=== PATIENT | male | born 1955 | race Caucasian/White ===

== ENCOUNTER 2020-03-19 01:23 | Emergency (ER) | payer OTHER ==
[~2020-03-19] VITALS: Ht 182.9 cm; Wt 74.8 kg
[2020-03-19 01:28] VITALS: BP 132/70
[2020-03-19] MEDS ORDERED: LIDOCAINE 1%-EPI 1:100,000 20 ML VIAL ONE (01:42)
--- NOTE | 2020-03-19 02:24 | NUR ---
pt rec'd lac care by at bed side. wound care provideed by JACKIE Franco . area was covered w/ dd. no bleeding noted. medically stable for D/C. Patient discharged to home in stable condition. Rx and Written and verbal after care instructions given. Patient verbalizes understanding of instruction.
[2020-03-19] MEDS ORDERED: LIDOCAINE 1%-EPI 1:100,000 50 ML VIAL IJ ONE (02:30)
== END 2020-03-19 02:29 | disposition home or self-care (01) ==
LOC: ER 01:23
DX: S71.112A Laceration without foreign body, left thigh, initial encounter (principal); N40.0 Benign prostatic hyperplasia without lower urinary tract symptoms; F17.200 Nicotine dependence, unspecified, uncomplicated; Z98.890 Other specified postprocedural states; W26.8XXA Contact with other sharp object(s), not elsewhere classified, initial encounter; Y93.39 Activity, other involving climbing, rappelling and jumping off; Y92.89 Other specified places as the place of occurrence of the external cause; Y99.8 Other external cause status
CPT/HCPCS: 99283; J3490 ×2